=== PATIENT | female | born 1975 | race Two or more races ===

== ENCOUNTER 2023-06-04 15:31 | Emergency (ER) | payer OTHER ==
[~2023-06-04] VITALS: Ht 172.7 cm; Wt 92.5 kg
[2023-06-04] MEDS ORDERED: PROAIR RESPICL90 MCG (15:36)
[2023-06-04] MEDS ORDERED: AMBIEN10 MG PO (15:36)
[2023-06-04] MEDS ORDERED: PAXIL40 MG (15:36)
[2023-06-04] MEDS ORDERED: KETOROLAC TROMETHAMINE 30 MG VIAL IV ONE (17:45)
[2023-06-04] MEDS ORDERED: IPRATROPIUM/ALBUTEROL SULFATE 3 ML AMPUL.NEB IH SCH (17:45)
[2023-06-04] MEDS ORDERED: GUAIFENESIN/DEXTROMETHORPHAN 100 MG/5 ML ML PO ONE (17:45)
[2023-06-04] MEDS ORDERED: METHYLPREDNISOLONE SOD SUCC 125 MG VIAL IV ONE (19:00)
[2023-06-04 19:03] LABS: HEMATOCRIT 37.2 % (36.0-45.00); HEMOGLOBIN 12.8 g/dL (12.0-15.00); MEAN CELL VOLUME 89.2 fL (80.00-100.00); MEAN CORPUSCULAR HEMOGLOBIN 30.6 pg (27.00-32.0); MEAN CORPUSCULAR HGB CONC 34.3 g/dl (32.0-36.0); PLATELET COUNT 236 K/uL (150-450); RED BLOOD COUNT 4.17 M/uL (4.00-6.00); RED CELL DISTRIBUTION WIDTH 13.8 % (11.5-14.5)
[2023-06-04] MEDS ORDERED: ALBUTEROL1.25 MG/3 IH (20:38)
[2023-06-04] MEDS ORDERED: IPRATROPIU0.2 MG/1 M IH (20:38)
[2023-06-04] MEDS ORDERED: ZITHROMAX500 MG PO (20:41)
[2023-06-04] MEDS ORDERED: DIABETIC TUSSI118 M3 PO (20:41)
[2023-06-04] MEDS ORDERED: SODIUM CHLORIDE 0.9% IV ONE (21:15)
[2023-06-04] MEDS ORDERED: MAGNESIUM SULFATE IV ONE (21:15)
== END 2023-06-04 23:06 ==
LOC: ER 15:31
PROVIDERS: Nurse Practitioner Family
DX: R53.81 Other malaise (principal); J06.9 Acute upper respiratory infection, unspecified; Z20.822 Contact with and (suspected) exposure to COVID-19